=== PATIENT | male | born 1950 | race Caucasian/White ===

== ENCOUNTER 2017-08-11 08:16 | Emergency (ER) | payer BC ==
[~2017-08-11] VITALS: Ht 175.3 cm; Wt 81.7 kg
[~2017-08-11 08:16] MED LIST: ATIVAN1 MG PO; BACITRACIN15 GM TP; BACTRIM DS TAB1 EACH PO; CLONIDINE HCL0.2 M2 PO; CLONIDINE HCL0.3 M2; CLONIDINE0.1 PO; LOTENSIN20 MG PO; NAPROSYN500 MG PO; NORVASC5 MG PO; TOPROL XL25 MG PO; TOPROL XL50 MG; TOPROL XL50 MG PO
[2017-08-11 08:53] LABS: ABSOLUTE NEUTROPHILS 4.9 thou/uL (1.4-8.2); EOSINOPHILS 2.5 % (0.0-3.0); HEMOGLOBIN 16.3 gm/dL (14.0-18.0); MCH 30.1 pg (26.0-34.0); MCHC 34.7 g/dL (28.0-37.0); MCV 86.7 fL (80.0-100.0); MONOCYTES 9.3 % (1.0-8.0); PLATELET COUNT 174 thou/uL (150-400); POLYS 68.2 % (36.0-66.0); RBC 5.42 mil/uL (4.50-6.00); RDW 14.6 % (10.5-14.5); WBC 7.1 thou/uL (4.0-11.0)
[2017-08-11 08:56] LABS: CALCIUM 8.7 mg/dL (8.5-10.1); CREATININE 1.2 mg/dL (0.7-1.3); POTASSIUM 3.6 mmol/L (3.5-5.1)
[2017-08-11 11:45] VITALS: BP 148/88
== END 2017-08-11 11:51 | disposition home or self-care (01) ==
LOC: ER 08:16
PROVIDERS: Emergency Medicine
DX: E86.0 Dehydration (principal); T67.3XXA Heat exhaustion, anhydrotic, initial encounter; X58.XXXA Exposure to other specified factors, initial encounter; I10 Essential (primary) hypertension

== ENCOUNTER 2018-12-20 19:47 | Emergency (ER) | payer BC, OTHER ==
[~2018-12-20] VITALS: Ht 175.3 cm; Wt 79.4 kg
[2018-12-20 20:34] LABS: ABSOLUTE NEUTROPHILS 5.5 thou/uL (1.4-8.2); BASOPHILS 1.4 % (0.0-2.0); EOSINOPHILS 3.1 % (0.0-3.0); HEMATOCRIT 49.4 % (42.0-52.0); LYMPHOCYTES 22.5 % (24.0-44.0); MCH 30.7 pg (26.0-34.0); MCHC 34.4 g/dL (28.0-37.0); MCV 89.2 fL (80.0-100.0); MONOCYTES 9.6 % (1.0-8.0); PLATELET COUNT 195 thou/uL (150-400); POLYS 63.4 % (36.0-66.0); RBC 5.54 mil/uL (4.50-6.00); RDW 13.6 % (10.5-14.5); WBC 8.7 thou/uL (4.0-11.0)
[2018-12-20 20:38] LABS: CALCIUM 8.8 mg/dL (8.5-10.1); CREATININE 1.1 mg/dL (0.7-1.3); POTASSIUM 3.7 mmol/L (3.5-5.1)
[2018-12-20 20:44] LABS: ALBUMIN 4.2 g/dL (3.4-5.0); DIRECT BILIRUBIN 0.2 mg/dL (<0.1-0.3); TOTAL BILIRUBIN 1.1 mg/dL (<0.1-1.0); TOTAL PROTEIN 7.4 g/dL (6.4-8.2)
[2018-12-20 22:18] LABS: URINE BILIRUBIN NEGATIVE (Negative); URINE BLOOD NEGATIVE (Negative); URINE CLARITY CLEAR; URINE COLOR YELLOW; URINE GLUCOSE-RANDOM* NEGATIVE (Negative); URINE KETONES NEGATIVE (Negative); URINE LEUKOCYTES-REFLEX NEGATIVE (Negative); URINE NITRITE-REFLEX NEGATIVE (Negative); URINE PROTEIN (DIPSTICK) NEGATIVE (Negative); URINE UROBILINOGEN 0.2 E.U./dl (0.2-1.0)
[2018-12-20 22:25] LABS: AMP/METHAMP Negative (Negative); BARBITURATES Negative (Negative); BENZODIAZEPINES Negative (Negative); COCAINE Negative (Negative); METHADONE Negative (Negative); OPIATES Negative (Negative); PCP Negative (Negative)
[2018-12-20 23:29] VITALS: BP 171/95
--- NOTE | 2018-12-22 09:11 | EKG ---
[address] [address] ELECTROCARDIOGRAM REPORT Name: RUFINAINOCENCIOSAEEDCLOVIS Ybarra Room #: [facility]#: [id number] Admission: 12/20/18 Attend Phys: Discharge: 12/20/18 Date of : 54 Report #: [id number] THIS REPORT FOR: //name// [facility] ED Test Date: 2018-12-20 Test Time: 20:11:45 Pat Name: CLOVIS DIEZ Department: Room: Gender: M Engineering Intern: [place] : 1950 Requested By: Nathalie Pineda Order Number: [id number] MD: Zeeshan Rodríguez Measurements Intervals [place] Rate: 55 P: 43 IN: 184 QRS: -15 QRSD: 109 T: 19 QT: 471 QTc: 451 Interpretive Statements Sinus bradycardia Borderline left axis deviation Compared to ECG 03/03/2012 17:34:34 No significant change was found Electronically Signed On 12-22-2018 9:11:06 CDT by Zeeshan Rodríguez [email or web address] <ELECTRONICALLY SIGNED> By: Zeeshan Rodríguez MD, [facility] 12/22/18910 10 10 Zeeshan Rodríguez MD, FACC /EPI
== END 2018-12-20 23:30 | disposition home or self-care (01) ==
LOC: ER 19:47
PROVIDERS: Emergency Medicine
DX: R55 Syncope and collapse (principal); I10 Essential (primary) hypertension; Z90.89 Acquired absence of other organs; Z87.891 Personal history of nicotine dependence

== ENCOUNTER → 2020-01-22 | Outpatient (CLI) | payer BC, OTHER ==
[~2020-01-22] MED LIST changes: +BYSTOLIC20 MG PO; +CATAPRES0.2 MG PO; -CLONIDINE HCL0.3 M2; +CLONIDINE HCL0.3 M2 PO; +COZAAR 50 MG TA50 M1 PO; +D3-501250 MCG PO; +DOXYCYCLINE 10100 M2 PO; +EDARBYCLOR 40-1 EAC1 PO; +PEPCID20 MG PO; +VITAMIN B-1100 M2 PO
== END ==
LOC: SJCVC 10:06
PROVIDERS: ATTEND Internal Medicine
DX: R94.31 Abnormal electrocardiogram [ECG] [EKG] (principal); I10 Essential (primary) hypertension; E78.5 Hyperlipidemia, unspecified; Z79.899 Other long term (current) drug therapy; Z87.891 Personal history of nicotine dependence

== ENCOUNTER → 2020-02-05 | Outpatient (CLI) | payer BC, OTHER | LOC: SJCVCIMAG 07:48 | PROVIDERS: ATTEND Internal Medicine | DX: I10 Essential (primary) hypertension (principal); N20.0 Calculus of kidney ==

== ENCOUNTER 2020-03-08 06:40 | Emergency (ER) | payer BC, OTHER ==
[~2020-03-08] VITALS: Ht 175.3 cm; Wt 79.4 kg
[2020-03-08 07:55] LABS: ABSOLUTE NEUTROPHILS 4.7 thou/uL (1.4-8.2); BASOPHILS 1.5 % (0.0-2.0); EOSINOPHILS 1.8 % (0.0-3.0); HEMATOCRIT 42.9 % (42.0-52.0); HEMOGLOBIN 14.4 gm/dL (14.0-18.0); LYMPHOCYTES 13.9 % (24.0-44.0); MCH 30.1 pg (26.0-34.0); MCHC 33.5 g/dL (28.0-37.0); MCV 89.8 fL (80.0-100.0); MONOCYTES 8.2 % (1.0-8.0); PLATELET COUNT 211 thou/uL (150-400); POLYS 74.6 % (36.0-66.0); RBC 4.77 mil/uL (4.50-6.00); RDW 13.8 % (10.5-14.5); WBC 6.3 thou/uL (4.0-11.0)
[2020-03-08 08:04] LABS: ANION GAP 8 mmol/L (7-16); BUN 20 mg/dL (7-18); CALCIUM 9.1 mg/dL (8.5-10.1); CHLORIDE 103 mmol/L (98-107); CO2 26 mmol/L (21-32); CREATININE 1.2 mg/dL (0.7-1.3); GLUCOSE 103 mg/dL (74-106); POTASSIUM 3.6 mmol/L (3.5-5.1); SODIUM 137 mmol/L (136-145)
[2020-03-08 08:13] LABS: TROPONIN-I <0.06 ng/mL (<0.06)
--- NOTE | 2020-03-08 10:03 | EKG ---
[address] [address] [place] [address] ELECTROCARDIOGRAM REPORT Name: RUFINAINOCENCIOCLOVIS TIPTON Room #: [facility]#: [id number] Admission: 03/08/20 Attend Phys: Discharge: Date of : 54 Report #: [id number] [facility] ED Test Date: 2020-03-08 Test Time: 08:35:54 Pat Name: CLOVIS DIEZ Department: Room: Gender: M Guide: TRINITY : 1950 Requested By: Kati Clarke Order Number: [id number] MD: Lonnie Khan Measurements Intervals [place] Rate: 61 P: 57 [place]: 173 QRS: -21 QRSD: 103 T: 6 QT: 461 QTc: 465 Interpretive Statements Sinus rhythm Borderline left axis deviation Borderline T wave abnormalities Baseline wander in lead(s) V5 Compared to ECG 12/20/2018 20:11:45 T-wave abnormality now present Sinus bradycardia no longer present Electronically Signed On 03-08-2020 10:02:58 GAME DESIGNER/CREATIVE DIRECTOR by Lonnie Khan [email or web address] <ELECTRONICALLY SIGNED> By: Lonnie Khan MD, [facility] 03/08/20 [facility] 4 4 Lonnie Khan MD, FACC /EPI
[2020-03-08] MEDS ORDERED: SPIRONOLACTONE25 M1 PO (10:14)
[2020-03-08 10:15] VITALS: BP 176/95
== END 2020-03-08 10:30 | disposition home or self-care (01) ==
LOC: ER 06:40
PROVIDERS: Emergency Medicine
DX: I10 Essential (primary) hypertension (principal); Z90.89 Acquired absence of other organs; Z79.899 Other long term (current) drug therapy; Z87.891 Personal history of nicotine dependence